=== PATIENT | female | born 1980 | race Caucasian/White ===

== ENCOUNTER 2024-05-17 22:19 | Emergency (ER) | payer SELFPAY ==
[~2024-05-17] VITALS: Ht 162.6 cm; Wt 74.8 kg
[~2024-05-17 22:19] MED LIST: Lasix20 MG PO
[2024-05-18] MEDS ORDERED: Lasix20 MG PO (01:10)
[2024-05-18] MEDS ORDERED: Furosemide 20 MG Tab PO ONE (01:10)
== END 2024-05-18 01:16 | disposition home or self-care (01) ==
LOC: ER 22:19
DX: I50.9 Heart failure, unspecified (principal); Z76.0 Encounter for issue of repeat prescription; Z79.899 Other long term (current) drug therapy
CPT/HCPCS: 99281; A9270